=== PATIENT | male | born 1970 | race Caucasian/White ===

== ENCOUNTER 2022-03-12 09:11 | Outpatient (CLI) | payer OTHER, SELFPAY ==
[2022-03-12 11:19] LABS: Albumin* 4.3 g/dL (3.3-5.0); Chloride* 105 mmol/L (96-114)
[2022-03-12 11:20] LABS: Potassium* 4.2 mmol/L (3.6-5.1); Sodium* 138 mmol/L (135-149)
[2022-03-12 11:22] LABS: Carbon Dioxide* 27 mmol/L (20-32); Cholesterol* 219 mg/dL (90-199)
[2022-03-12 11:23] LABS: Alanine Aminotransferase* 31 U/L (4-50); Alkaline Phosphatase* 58 U/L (40-150); Aspartate Amino Transferase* 22 U/L (12-35); Bilirubin Total* 0.5 mg/dL (0.1-1.5); Blood Urea Nitrogen* 22 mg/dL (5-24); Creatinine* 0.9 mg/dL (0.5-1.5); Estimated Glomerular Filt Rate 105 ml/min; Glucose* 108 mg/dL (60-115); Total Protein* 6.8 g/dL (6.0-8.3); Triglycerides* 244 mg/dL (40-149)
[2022-03-12 11:24] LABS: HDL Cholesterol* 34 mg/dL (>=40); LDL Cholesterol Calculated 136 mg/dL (<100)
== END 2022-03-12 09:12 | disposition home or self-care (01) ==
PROVIDERS: PCP Internal Medicine; Visit Provider Internal Medicine
DX: Z00.00 Encounter for general adult medical examination without abnormal findings (principal); I42.9 Cardiomyopathy, unspecified
CPT/HCPCS: 80053; 80061

== ENCOUNTER 2023-02-24 09:45 | Outpatient (CLI) | payer OTHER, SELFPAY | END 2023-02-24 09:46 | disposition home or self-care (01) | LOC: NFLDREF 03-05 08:06 | PROVIDERS: PCP Internal Medicine; Referring Provider Internal Medicine; Visit Provider Internal Medicine | DX: I42.9 Cardiomyopathy, unspecified (principal); D86.9 Sarcoidosis, unspecified; Z13.6 Encounter for screening for cardiovascular disorders; Z12.5 Encounter for screening for malignant neoplasm of prostate | CPT/HCPCS: 80053; 80061; 84153 ==